=== PATIENT | male | born 1940 | race Caucasian/White ===

== ENCOUNTER → 2019-08-26 | Outpatient (CLI) | payer MEDICARE ==
--- NOTE | 2019-08-27 07:52 | XCELERA REPORT ---
[address] [address] Transthoracic Echocardiogram Report Name: PADDY MEYER Age: 79 yrs Gender: Male : 1940 Patient Status: Preadmit Patient Location: RAD Study Date: 08/26/2019 01:18 PM History: CHF Atrial fibrillation Height: 72 in Weight: 225 lb BSA: 2.2 m2 Procedure: A complete two-dimensional transthoracic echocardiogram was performed (2D, M-mode, spectral and color flow Doppler). The study was technically adequate with some images being suboptimal in quality. Reason For Study: CHF, AFIB Ordering Physician: AZUCENA HARVEY Performed By: Yajaira Sexton Interpretation Summary The Ejection Fraction estimate is 50-55% Left ventricular systolic function is low normal. The right ventricular systolic function is normal. There is a trace amount of mitral regurgitation There is no aortic valve stenosis There is a trace amount of tricuspid regurgitation There is moderate pulmonary hypertension by echo There is no pericardial effusion. MMode/2D Measurements & Calculations RVDd: 4.8 cm LVIDd: 4.6 cm FS: 25.7 % Ao root diam: 3.3 cm IVSd: 1.4 cm LVIDs: 3.4 cm EDV(Teich): 94.9 ml Ao root area: 8.7 cm2 LVPWd: 1.4 cm ESV(Teich): 46.8 ml LA dimension: 4.9 cm EF(Teich): 50.7 % Doppler Measurements & Calculations MV E max jay: MV P1/2t max jay: Ao V2 max: LV V1 max P.5 cm/sec 78.5 cm/sec 106.8 cm/sec 3.4 mmHg MV P1/2t: 140.0 msec Ao max PG: LV V1 max: MVA(P1/2t): 1.6 cm2 4.6 mmHg 92.8 cm/sec MV dec slope: 164.2 cm/sec2 MV dec time: 0.48 sec PA V2 max: PI end-d jay: TR max jay: MV P1/2t-pr_phl: 73.1 cm/sec 126.2 cm/sec 308.1 cm/sec 140.0 msec PA max PG: TR max P.1 mmHg 38.0 mmHg Left Ventricle The left ventricle is grossly normal size. There is moderate to severe concentric left ventricular hypertrophy. The Ejection Fraction estimate is 50- 55%. Left ventricular systolic function is low normal. LV diastolic function not assessed. No regional wall motion abnormalities noted. Right Ventricle The right ventricle is mildly dilated. The right ventricular systolic function is normal. Atria The right atrium is mild to moderately dilated. The left atrium is moderately dilated. Mitral Valve The mitral valve is grossly normal. There is a trace amount of mitral regurgitation. Aortic Valve The aortic valve is normal in structure and function. The aortic valve is trileaflet. The aortic valve opens well. There is no aortic valve stenosis. No aortic regurgitation is present. Tricuspid Valve The tricuspid valve is normal in structure and function. There is a trace amount of tricuspid regurgitation. Best estimated RVSP is approximately 50-55 mm/Hg. There is moderate pulmonary hypertension by echo. Pulmonic Valve The pulmonic valve is normal in structure and function. There is a mild amount of pulmonic regurgitation. Great Vessels The aortic root is normal size. The inferior vena cava appeared normal and decreased < 50% with respiration (RAP 10-15 mmHg). The inferior vena cava appeared dilated and decreased < 50% with respiration (RAP 15-20 mmHg). Effusions There is no pericardial effusion. : AZUCENA HARVEY Anil
== END ==
LOC: RAD 12:51
PROVIDERS: ATTEND Internal Medicine
DX: I50.9 Heart failure, unspecified (principal); I48.11 Longstanding persistent atrial fibrillation
CPT/HCPCS: 93306